=== PATIENT | male | born 2000 | race Caucasian/White ===

== ENCOUNTER 2021-02-18 15:27 | Emergency (ER) | payer MEDICAID ==
[~2021-02-18] VITALS: Ht 182.9 cm; Wt 127.2 kg
[2021-02-18] MEDS ORDERED: IV NORMAL SALINE 1000ML BAG 1,000 ML IV ONE (16:15)
--- NOTE | 2021-02-18 16:22 | PHYS DOC ---
Past Medical History Additional Past Medical Histor: SLEEP APNEA Past Surgical History: No Surgical History Smoking Status: Current Every Day Smoker Alcohol Use: None General Adult EDM: Chief Complaint: SEIZURE HPI: HPI: Patient is a 20-year-old male who presents to the emergency department for seizure. Patient has a seizure history and takes 2 g of Keppra twice a day. He also takes gabapentin 400 mg 3 times a day. Patient reports that his last seizure prior to today was 2 months ago. Patient had 7 witnessed seizures by his family member. They state that the longest seizure was 5 minutes in length. They report the patient was in bed during all seizures and did not have any falls or hit head. He states that he has been taking his Keppra as prescribed and has not missed any doses. Patient is reporting mid thoracic back pain that he rates 8 out of 10 that he believes is due to tensing up during the seizures. No treatment prior to arrival. Patient has a history of diabetes type 1, neuropathy, asthma and sleep apnea. Patient states that he has had decreased sensation to bilateral lower extremities. Patient denies any chest pain, shortness of breath, dizziness, injury. Review of Systems: Review of Systems: Respiratory: See HPI Cardiovascular: See HPI Musculoskeletal: See HPI Neurologic: See HPI Heart Score: C/O Chest Pain: No Risk Factors: Risk Factors: DM, Current or recent (<one month) smoker, HTN, HLP, family h istory of CAD, obesity. Risk Scores: Score 0 - 3: 2.5% MACE over next 6 weeks - Discharge Home Score 4 - 6: 20.3% MACE over next 6 weeks - Admit for Clinical Observation Score 7 - 10: 72.7% MACE over next 6 weeks - Early Invasive Strategies Current Medications: Current Medications Medications (Trade) Dose Ordered Sig/Mike Start Time Stop Time Status Last Admin Dose Admin Sodium Chloride 1,000 ml @ 1,000 mls/hr 1X ONCE 02/18/21 16:15 02/18/21 17:14 Allergies: Allergies: Allergies Coded Allergies Type Severity Reaction Last Updated Verified No Known Drug Allergies 02/18/21 No Physical Exam: PE: Constitutional: Well developed, well nourished, no acute distress, non-toxic appearance. [] HENT: Normocephalic, atraumatic, bilateral external ears normal, oropharynx moist, no oral exudates, nose normal. [] Eyes: PERRL, 4 mm pupils bilaterally, EOMI, conjunctiva normal, no discharge. [] Neck: Normal range of motion, no tenderness, supple, no stridor. [] Cardiovascular:Heart rate regular rhythm, no murmur [] Lungs & Thorax: Bilateral breath sounds clear to auscultation [] Abdomen: Bowel sounds normal, soft, no tenderness, no masses, no pulsatile masses. [] Skin: Warm, dry, no erythema, no rash. [] Back: No tenderness, full range of motion Extremities: No tenderness, no cyanosis, no clubbing, ROM intact, no edema, patient is moving all 4 extremities equally, bilateral lower extremities are neurovascularly intact with strong DP pulses Neurologic: Alert and oriented X 3, normal motor function, normal sensory function, no focal deficits noted. [] Psychologic: Affect normal, judgement normal, mood normal. [] Current Patient Data: Labs: Laboratory Tests Test 02/18/21 16:30 White Blood Count 5.1 x10^3/uL Red Blood Count 5.24 x10^6/uL Hemoglobin 15.4 g/dL Hematocrit 45.6 % Mean Corpuscular Volume 87 fL Mean Corpuscular Hemoglobin 29 pg Mean Corpuscular Hemoglobin Concent 34 g/dL Red Cell Distribution Width 13.1 % Platelet Count 82 x10^3/uL Neutrophils (%) (Auto) 43 % Lymphocytes (%) (Auto) 39 % Monocytes (%) (Auto) 13 % Eosinophils (%) (Auto) 5 % Basophils (%) (Auto) 1 % Neutrophils # (Auto) 2.2 x10^3/uL Lymphocytes # (Auto) 2.0 x10^3/uL Monocytes # (Auto) 0.7 x10^3/uL Eosinophils # (Auto) 0.2 x10^3/uL Basophils # (Auto) 0.0 x10^3/uL Sodium Level 146 mmol/L Potassium Level 3.9 mmol/L Chloride Level 108 mmol/L Carbon Dioxide Level 29 mmol/L Anion Gap 9 Blood Urea Nitrogen 10 mg/dL Creatinine 1.0 mg/dL Estimated GFR (Cockcroft-Gault) 93.4 BUN/Creatinine Ratio 10 Glucose Level 90 mg/dL Lactic Acid Level 1.0 mmol/L Calcium Level 9.0 mg/dL Total Bilirubin 0.4 mg/dL Aspartate Amino Transf (AST/SGOT) 22 U/L Alanine Aminotransferase (ALT/SGPT) 36 U/L Alkaline Phosphatase 93 U/L Total Protein 6.8 g/dL Albumin 3.5 g/dL Albumin/Globulin Ratio 1.1 Current Medications Medications (Trade) Dose Ordered Sig/Mike Route PRN Reason Start Time Stop Time Status Last Admin Dose Admin Sodium Chloride 1,000 ml @ 1,000 mls/hr 1X ONCE IV 02/18/21 16:15 02/18/21 17:14 DC 02/18/21 16:27 Vital Signs: Vital Signs Date Time Temp Pulse Resp B/P (MAP) Pulse Ox O2 Delivery O2 Flow Rate FiO2 02/18/21 16:02 98.5 60 18 141/61 (87) 100 Room Air 98.5 EKG: EKG: EKG performed by ER staff at 1632 shows sinus bradycardia with a heart rate of 56, QTC of 373, no STEMI read by Dr. Burroughs at 1634. [] Radiology/Procedures: Radiology/Procedures: []PROCEDURE: CT HEAD WO CONTRAST EXAM: CT Head without IV contrast CLINICAL HISTORY: SEIZURE COMPARISON: None. TECHNIQUE: Routine CT of the head without contrast. PQRS compliance statement - One or more of the following individualized dose reduction techniques were utilized for this study: 1. Automated exposure control 2. Adjustment of the mA and/or kV according to patient size 3. Use of iterative reconstruction technique FINDINGS: There is no evidence of hemorrhage, mass or extra-axial fluid collection. Lam-white differentiation is maintained with no evidence of edema. There is no mass effect or shift of the intracranial structures. The ventricles, basilar cisterns and cortical sulci are normal in size and configuration for the patients stated age. The cerebellum and brainstem are unremarkable. The calvarium demonstrates no evidence of fracture or focal lesion. There is normal aeration of the visualized paranasal sinuses and mastoid air josie ls. The visualized portions of the orbits are normal. IMPRESSION: No evidence for acute intracranial process. Electronically signed by: Darrell Hurt MD (02/18/2021 4:57 PM) [facility] DICTATED and SIGNED BY: DARRELL HURT MD DATE: 02/18/21 [id number] 0 Course & Med Decision Making: Course & Med Decision Making Pertinent Labs and Imaging studies reviewed. (See chart for details) [] Patient presents to the emergency department for seizures. Patient had 7 witnessed seizure today. He takes Keppra at home and has not missed any doses. Work-up in the ER consisted of blood work, urinalysis and CT imaging of head. Blood work was unremarkable, patient had a lactic acid of 1. CT head was unr emarkable. Patient's Keppra level is a send out and he will be notified of the results when it becomes available. Patient has not had a seizure while in the emergency department. He is neurologically intact and back to baseline. Patient is from [place] and does not have a neurologist in [place] so he was given follow-up information about [facility] neurology. Patient states that he does not need a refill of his Keppra and he has plenty at home. Patient also educated on seizure precautions and he was advised to not drive a vehicle or operate any machinery. I discussed with patient all findings and diagnostic testing as well as the need to follow-up with PCP for further evaluation and treatment or return to the ER if any new or worsening symptoms. Strict return precautions were also discussed at length. Patient voiced understanding and agreement with the plan. Patient is hemodynamically stable at the time of disposition. Dragon Disclaimer: [employer] Disclaimer: This electronic medical record was generated, in whole or in part, using a voice recognition dictation system. Departure Departure Impression: Primary Impression: Seizure Disposition: 01 HOME / SELF CARE / HOMELESS Condition: GOOD Patient Instructions: Seizure, Adult Additional Instructions: You are seen in the emergency department for seizures today. Your blood work was unremarkable and the CT scan of your head did not show any acute abnormalities. We sent out a Keppra level and we will call you with those results. Please continue to take your Keppra as directed. Please ensure that you do not miss any doses. Please follow-up with one of the neurologist that was provided for you. I would advise you to call them tomorrow to set up a follow-up appointment. As we discussed, you should not drive a vehicle or operate any machinery. Please return to the emergency department if you have another seizure, chest pain, shortness of breath, headache, dizziness, vision changes, intractable nausea vomiting or any new or worsening concerns. HOLLIS ESCOBAR [facility] REHABILITATION DIRECTOR Feb 18, 2021 16:22
[2021-02-18 16:40] LABS: BASO % 1 % (0-3); EOS # 0.2 x10^3/uL (0.0-0.7); EOS % 5 % (0-3); HEMATOCRIT 45.6 % (39.0-53.0); HEMOGLOBIN 15.4 g/dL (13.0-17.5); LYMPH % 39 % (24-48); MEAN CORPUSCULAR HEMOGLOBIN 29 pg (25-35); MEAN CORPUSCULAR HGB CONC 34 g/dL (31-37); MEAN CORPUSCULAR VOLUME 87 fL (79-100); MONO # 0.7 x10^3/uL (0.0-1.1); MONO % 13 % (0-9); NEUT # 2.2 x10^3/uL (1.8-7.7); NEUT % 43 % (31-73); PLATELET COUNT 82 x10^3/uL (140-400); RED BLOOD COUNT 5.24 x10^6/uL (4.30-5.70); RED CELL DISTRIBUTION WIDTH 13.1 % (11.5-14.5); WHITE BLOOD COUNT 5.1 x10^3/uL (4.0-11.0)
[2021-02-18 16:55] LABS: GFR 93.4; POTASSIUM 3.9 mmol/L (3.5-5.1)
--- NOTE | 2021-02-18 16:59 | RAD ---
EXAM: CT Head without IV contrast CLINICAL HISTORY: SEIZURE COMPARISON: None. TECHNIQUE: Routine CT of the head without contrast. PQRS compliance statement - One or more of the following individualized dose reduction techniques wer e utilized for this study: 1. Automated exposure control 2. Adjustment of the mA and/or kV according to patient size 3. Use of iterative reconstruction technique FINDINGS: There is no evidence of hemorrhage, mass or extra-axial fluid collection. Lam-white differentiation is maintained with no evidence of edema. There is no mass effect or shift of the intracranial structures. The ventricles, basilar cisterns and cortical sulci are normal in size and configuration for the gissel ents stated age. The cerebellum and brainstem are unremarkable. The calvarium demonstrates no evidence of fracture or focal lesion. There is normal aeration of the visualized paranasal sinuses and mastoid air cells. The visualized portions of the orbits are normal. IMPRESSION: No evidence for acute intracranial process. Electronically signed by: Darrell Rosales MD (02/18/2021 4:57 PM) BETSY
[2021-02-18 17:00] LABS: ALBUMIN 3.5 g/dL (3.4-5.0); ALBUMIN/GLOBULIN RATIO 1.1 (1.0-1.7); TOTAL BILIRUBIN 0.4 mg/dL (0.2-1.0); TOTAL PROTEIN 6.8 g/dL (6.4-8.2)
[2021-02-18 17:57] VITALS: BP 136/64
--- NOTE | 2021-02-18 22:37 | EKG ---
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
== END 2021-02-18 17:54 | disposition home or self-care (01) ==
LOC: ER 15:27
DX: R56.9 Unspecified convulsions (principal); F17.200 Nicotine dependence, unspecified, uncomplicated; E10.40 Type 1 diabetes mellitus with diabetic neuropathy, unspecified
CPT/HCPCS: 36415; 70450; 80053; 80177; 83605; 85025; 93005; 96360; 99285; J7030